=== PATIENT | female | born 2000 | race Caucasian/White ===

== ENCOUNTER 2018-05-13 01:07 | Inpatient (IN) | payer BC ==
[2018-05-13] VITALS (20 sets, daily range): BP systolic 94–140; BP diastolic 55–94
[~2018-05-13] VITALS: Ht 160 cm; Wt 53.1 kg
--- NOTE | ~2018-05-13 | CON ---
[address] [address] CONSULTATION Name: THO MEDINA Room: [address] ADM IN M.R.#: [id number] Admission: 05/13/18 Attend Phys: Blaire Ragsadle Discharge: Date of : [birth year] Report #: [id number] THIS REPORT FOR: //name// CC: [facility]JA physician/PCP Blanca Carmichael Consultation obtained with Dr. Titus for salicylates toxicity. HISTORY OF PRESENT ILLNESS: The patient is a 18-year-old female who was admitted to the ER yesterday after she presented to the ER with intentional ingestion of salicylates with the intention of suicide. The patient reports taking around 40 tablets of Anacin, each of which has 100 mg of aspirin and 32 mg of caffeine. Within half an hour, the patient had 4 episodes of vomiting. She did throw up chunks of tablets and multiple pill fragments. She mentioned by the end of her last vomiting, there were very few tablet chunks in there. She has been admitted to the hospital. She was seen in the intensive care unit. She did have some nausea earlier, but she reports feeling much better now. There is no fever, no chills. No tinnitus. No shortness of breath reported. She is answering all questions appropriately. She denies any abdominal pain. No numbness or tingling has been noted. PAST MEDICAL HISTORY: Significant for depression. HOME MEDICATIONS: control and a recent course of antibiotics. PERSONAL AND SOCIAL HISTORY: No smoking, no alcohol reported. FAMILY HISTORY: Noncontributory to the present illness. REVIEW OF SYSTEMS: As mentioned above. No fevers, no chills, no chest pain, no shortness of breath. No tinnitus. No numbness or tingling. PHYSICAL EXAMINATION: GENERAL: She is awake and alert and answering all questions appropriately. On examination, awake, alert, oriented. VITAL SIGNS: Blood pressure is 108/55, pulse rate is 90, temperature is 37.1. LUNGS: Diminished, but clear. SKIN: Dry, but warm. EXTREMITIES: Show no edema. HEART: Regular S1 and S2. ABDOMEN: Soft, nontender. NEUROLOGIC: Grossly stable. LABORATORY DATA: On admission, white count 12.4, hemoglobin is 14.1. Metabolic panel: Sodium on admission was 141, potassium of 2.8, chloride 104, bicarbonate 21, BUN is 11, creatinine 0.9, AST is 19, ALT is 15. Calcium was 8.3, glucose 122, albumin 4.1. CK level 99. Bicarbonate level 21. Her potassium has been [facility] [address] [place] [address] CONSULTATION Name: THO MEDINA Room: [address] IN M.R.#: [id number] Admission: 05/13/18 Attend Phys: Blaire Ragsdale Discharge: Date of : [birth year] Report #: [id number] corrected now at 4.2. Most recent labs show CO2 level is now 20. A urinalysis was obtained with a pH of 7, salicylate levels on admission 26, then 23.2 and then 28.9. ASSESSMENT: 1. Acute intentional salicylate poisoning. 2. History of depression. PLAN: 1. The patient did have episodes of emesis and threw up chunks of pills. 2. It has been many hours since presentation to the ER, and GI decontamination at this point may not be beneficial. 3. The patient has received fluid boluses already. 4. She is on normal saline at 100 right now. Change IV fluids to D5 normal saline at 100 mL. Give 2 amps of sodium bicarbonate IV 100 mg total dose now. Start D5 with 3 amps of bicarbonate at 100 mL an hour with attention to alkalize the patient and alkalize the urine. 5. Watch symptoms closely including altering of mental status, tachypnea and tinnitus or numbness and tingling peripherally. 6. Salicylate levels every 2 hours. 7. Metabolic panel every 4 hours. 8. Check the urine pH again later in the afternoon. 9. Detailed discussion with the nursing staff and Dr. Titus, instructions explained. 10. There is no acute indication for dialysis at this moment, but this may change with time as it has been less than 24 hours since the ingestion of the tablets. Thank you for the consultation. We will continue to follow and provide necessary support. By: [id number] Shine MD /nt
[~2018-05-13 01:07] MED LIST: MACROBID 100 M100 M2 PO
[2018-05-13] MEDS ORDERED: BIRTH CONTROL PO (01:24)
[2018-05-13 01:30] LABS: ABSOLUTE BASOPHILS 0.1 thou/uL (0.0-0.2); ABSOLUTE EOSINOPHILS 0.1 thou/uL (0.0-0.7); ABSOLUTE LYMPHOCYTES 3.5 thou/uL (0.8-5.3); ABSOLUTE MONOCYTES 0.7 thou/uL (0.0-1.2); ABSOLUTE NEUTROPHILS 8.2 thou/uL (1.6-8.1); BASOPHILS 0.5 %; EOSINOPHILS 0.5 %; HEMATOCRIT 42.4 % (37.0-47.0); HEMOGLOBIN 14.1 gm/dL (12.0-15.0); LYMPHOCYTES 27.8 %; MCHC 33.3 g/dL (28.0-37.0); MONOCYTES 5.3 %; MPV 8.4 fl. (7.2-11.1); NUCLEATED RBCS 0 /100WBC; PLATELET COUNT* 228 thou/uL (150-400); POLYS 65.9 %; RBC 4.72 mil/uL (4.20-5.00); RDW-CV 12.9 % (10.5-14.5); WBC 12.4 thou/uL (4.0-11.0)
[2018-05-13 01:36] LABS: CALCIUM 8.3 mg/dL (8.5-10.1); CREATININE 0.9 mg/dL (0.6-1.3)
[2018-05-13 01:38] LABS: POTASSIUM 2.8 mmol/L (3.5-5.1)
[2018-05-13 01:40] LABS: ALBUMIN 4.1 g/dL (3.4-5.0); TOTAL BILIRUBIN 0.3 mg/dL (<0.1-1.0); TOTAL PROTEIN 7.2 g/dL (6.4-8.2)
[2018-05-13 01:44] LABS: ACETAMINOPHEN < 2 ug/mL (10-30); ALCOHOL < 10 mg/dL (<10)
[2018-05-13 02:02] LABS: URINE BILIRUBIN NEGATIVE (Negative); URINE BLOOD NEGATIVE (Negative); URINE CLARITY CLEAR; URINE COLOR STRAW; URINE GLUCOSE-RANDOM NEGATIVE (Negative); URINE KETONES TRACE (Negative); URINE LEUKOCYTES-REFLEX NEGATIVE (Negative); URINE NITRITE-REFLEX NEGATIVE (Negative); URINE PROTEIN NEGATIVE (Negative); URINE UROBILINOGEN 0.2 E.U./dl (0.2-1.0)
[2018-05-13 02:15] LABS: AMP/METHAMP Negative (Negative); BARBITURATES Negative (Negative); BENZODIAZEPINES Negative (Negative); COCAINE Negative (Negative); METHADONE Negative (Negative); OPIATES Negative (Negative); PCP Negative (Negative); THC Negative (Negative)
[2018-05-13 04:43] LABS: CALCIUM 7.7 mg/dL (8.5-10.1); CREATININE 0.8 mg/dL (0.6-1.3)
[2018-05-13 05:09] LABS: POTASSIUM 3.8 mmol/L (3.5-5.1)
[2018-05-13 06:01] LABS: CALCIUM 7.9 mg/dL (8.5-10.1); CREATININE 0.8 mg/dL (0.6-1.3); POTASSIUM 4.2 mmol/L (3.5-5.1)
[2018-05-13 08:20] LABS: BE -6.5 mmol/L (-2 to +3); HCO3 15.2 mmol/L (22.0-26.0); PCO2 22.4 mmHg (35.0-45.0); pH 7.449 (7.340-7.450)
[2018-05-13 10:06] LABS: CALCIUM 7.9 mg/dL (8.5-10.1); CREATININE 0.8 mg/dL (0.6-1.3)
[2018-05-13 10:26] LABS: POTASSIUM 3.2 mmol/L (3.5-5.1)
[2018-05-13 10:42] LABS: PO2 133.7 mmHg (75.0-100.0)
[2018-05-13 14:16] LABS: CALCIUM 7.7 mg/dL (8.5-10.1); CREATININE 0.8 mg/dL (0.6-1.3); POTASSIUM 3.3 mmol/L (3.5-5.1)
--- NOTE | 2018-05-13 14:24 | EKG ---
[place] [address] ELECTROCARDIOGRAM REPORT Name: THO MEDINAN Room: [address] ADM IN .R.#: [id number] Admission: 05/13/18 Attend Phys: Blaire Ragsdale Discharge: Date of : [birth year] Report #: [id number] THIS REPORT FOR: //name// [facility] ED Test Date: 2018-05-13 Test Time: 01:16:17 Pat Name: THO MEDINA Department: Room: [facility] Gender: F Second Rigger: AP : 2000 Requested By: Talib Diaz Order Number: [id number] MD: Robbie Hall Measurements Intervals [place] Rate: 87 P: 49 MS: 141 QRS: 40 QRSD: 92 T: -79 QT: 331 QTc: 398 Interpretive Statements Sinus rhythm Nonspecific T abnormalities, diffuse leads No previous ECG available for comparison Electronically Signed On 05-13-2018 14:24:39 [employer] by Robbie Hall [email or web address] <ELECTRONICALLY SIGNED> By: Robbie Hall MD, [facility] 05/13/18 1424 011 011 Robbie Hall MD, FACC /EPI
[2018-05-13 18:35] LABS: URINE BILIRUBIN NEGATIVE (Negative); URINE BLOOD TRACE (Negative); URINE CLARITY CLEAR; URINE COLOR YELLOW; URINE GLUCOSE-RANDOM TRACE (Negative); URINE KETONES NEGATIVE (Negative); URINE LEUKOCYTES NEGATIVE (Negative); URINE NITRITE NEGATIVE (Negative); URINE PROTEIN NEGATIVE (Negative); URINE UROBILINOGEN 0.2 E.U./dl (0.2-1.0)
[2018-05-13 18:54] LABS: CALCIUM 8.1 mg/dL (8.5-10.1); CREATININE 0.9 mg/dL (0.6-1.3)
[2018-05-13 22:53] LABS: CALCIUM 7.8 mg/dL (8.5-10.1); CREATININE 0.8 mg/dL (0.6-1.3); POTASSIUM 3.8 mmol/L (3.5-5.1)
[2018-05-14] VITALS (18 sets, daily range): BP systolic 91–144; BP diastolic 55–88
[2018-05-14 04:22] LABS: HEMATOCRIT 36.5 % (37.0-47.0); MCH 30.2 pg (26.0-34.0); MCHC 33.2 g/dL (28.0-37.0); MPV 8.2 fl. (7.2-11.1); RBC 4.01 mil/uL (4.20-5.00); RDW-CV 12.9 % (10.5-14.5); WBC 5.9 thou/uL (4.0-11.0)
[2018-05-14 04:32] LABS: CALCIUM 7.7 mg/dL (8.5-10.1); CREATININE 0.8 mg/dL (0.6-1.3); POTASSIUM 3.9 mmol/L (3.5-5.1); TOTAL BILIRUBIN 0.4 mg/dL (<0.1-1.0); TOTAL PROTEIN 5.5 g/dL (6.4-8.2)
[2018-05-14 04:38] LABS: HEMOGLOBIN 12.1 gm/dL (12.0-15.0)
[2018-05-15] VITALS: BP 120/61
[2018-05-15 03:43] VITALS: BP 116/63
[2018-05-15 04:26] LABS: HEMATOCRIT 40.2 % (37.0-47.0); HEMOGLOBIN 13.3 gm/dL (12.0-15.0); MCH 30.1 pg (26.0-34.0); MCHC 33.1 g/dL (28.0-37.0); MCV 90.8 fL (80.0-100.0); MPV 8.9 fl. (7.2-11.1); RBC 4.42 mil/uL (4.20-5.00); RDW-CV 12.8 % (10.5-14.5); WBC 7.9 thou/uL (4.0-11.0)
[2018-05-15 04:48] LABS: ALBUMIN 3.5 g/dL (3.4-5.0); CALCIUM 8.5 mg/dL (8.5-10.1); CREATININE 0.9 mg/dL (0.6-1.3); MAGNESIUM 1.7 mg/dL (1.8-2.4); TOTAL BILIRUBIN 0.4 mg/dL (<0.1-1.0); TOTAL PROTEIN 6.2 g/dL (6.4-8.2)
[2018-05-15 08:01] VITALS: BP 106/63
[2018-05-15 10:14] VITALS: BP 106/63
== END 2018-05-15 10:51 | disposition home or self-care (01) | DRG 918 ==
LOC: M.ERS 01:07 → M.TBA-ER 01:54 → M.ICU 01:54 → M.3W 05-14 16:25
PROVIDERS: Family Medicine; Internal Medicine; Internal Medicine Nephrology; ADMIT Internal Medicine
DX: T39.012A Poisoning by aspirin, intentional self-harm, initial encounter (principal); E87.2 Acidosis; E87.6 Hypokalemia; F32.9 Major depressive disorder, single episode, unspecified; Y92.89 Other specified places as the place of occurrence of the external cause

== ENCOUNTER 2018-06-11 13:44 | Emergency (ER) | payer BC ==
[~2018-06-11] VITALS: Ht 157.5 cm; Wt 48.1 kg
[~2018-06-11 13:44] MED LIST changes: +BIRTH CONTROL PO
[2018-06-11] MEDS ORDERED: SEROQUEL200 MG PO (13:57)
[2018-06-11 15:11] LABS: URINE BILIRUBIN NEGATIVE (Negative); URINE BLOOD 2+ (Negative); URINE CLARITY CLEAR; URINE COLOR YELLOW; URINE GLUCOSE-RANDOM NEGATIVE (Negative); URINE KETONES NEGATIVE (Negative); URINE LEUKOCYTES-REFLEX NEGATIVE (Negative); URINE NITRITE-REFLEX NEGATIVE (Negative); URINE PROTEIN NEGATIVE (Negative); URINE SPECIFIC GRAVITY 1.015 (1.005-1.030); URINE UROBILINOGEN 0.2 E.U./dl (0.2-1.0)
[2018-06-11 15:41] LABS: SQUAMOUS >10 Many /LPF (0-3)
[2018-06-11 15:43] LABS: URINE WBC-REFLEX 0-5 Rare /HPF (0-5)
[2018-06-11 15:44] LABS: CASTS None Seen /LPF (None Seen); CRYSTALS None Seen /LPF (None Seen); MUCUS None Seen strn/LPF (None Seen); URINE RBC 0-2 Rare /HPF (0-2)
[2018-06-11] MEDS ORDERED: ROBAXIN 750 MG750 M1 PO (16:08)
[2018-06-11] MEDS ORDERED: IBUPROFEN 600600 M1 PO (16:08)
[2018-06-11 16:27] VITALS: BP 127/90
== END 2018-06-11 16:28 | disposition home or self-care (01) ==
LOC: M.ERS 13:44
PROVIDERS: Nurse Practitioner Family
DX: S16.1XXA Strain of muscle, fascia and tendon at neck level, initial encounter (principal); M25.551 Pain in right hip; F32.9 Major depressive disorder, single episode, unspecified; F41.9 Anxiety disorder, unspecified; G47.00 Insomnia, unspecified; M41.9 Scoliosis, unspecified; V49.40XA Driver injured in collision with unspecified motor vehicles in traffic accident, initial encounter; Y93.89 Activity, other specified; Y92.410 Unspecified street and highway as the place of occurrence of the external cause; Y99.8 Other external cause status

== ENCOUNTER 2018-11-02 17:17 | Emergency (ER) | payer OTHER ==
[~2018-11-02] VITALS: Ht 160 cm; Wt 49.9 kg
[~2018-11-02 17:17] MED LIST changes: +IBUPROFEN 600600 M1 PO; +ROBAXIN 750 MG750 M1 PO; +SEROQUEL200 MG PO
[2018-11-02] MEDS ORDERED: SERTRALINE HCL50 MG PO (17:33)
[2018-11-02] MEDS ORDERED: MEDROLDOSEPACK PO (18:39)
[2018-11-02 18:46] VITALS: BP 112/76
== END 2018-11-02 18:48 | disposition home or self-care (01) ==
LOC: M.ERS 17:17
DX: S16.1XXA Strain of muscle, fascia and tendon at neck level, initial encounter (principal); M54.6 Pain in thoracic spine; F32.9 Major depressive disorder, single episode, unspecified; F41.9 Anxiety disorder, unspecified; M41.9 Scoliosis, unspecified; G47.00 Insomnia, unspecified; V49.40XA Driver injured in collision with unspecified motor vehicles in traffic accident, initial encounter; Y93.89 Activity, other specified; Y92.89 Other specified places as the place of occurrence of the external cause; Y99.8 Other external cause status

== ENCOUNTER 2020-04-20 19:47 | Emergency (ER) | payer OTHER, MEDICAID ==
[~2020-04-20] VITALS: Ht 157.5 cm; Wt 47.6 kg
[~2020-04-20 19:47] MED LIST changes: +MEDROLDOSEPACK PO; +SERTRALINE HCL50 MG PO
[2020-04-20] MEDS ORDERED: NORCO 5-325 TA1 EAC2 PO (21:17)
[2020-04-20] MEDS ORDERED: FLEXERIL PO (21:17)
[2020-04-20 21:33] VITALS: BP 123/77
== END 2020-04-20 21:33 | disposition home or self-care (01) ==
LOC: M.ERS 19:47
DX: S16.1XXA Strain of muscle, fascia and tendon at neck level, initial encounter (principal); S29.012A Strain of muscle and tendon of back wall of thorax, initial encounter; M41.9 Scoliosis, unspecified; V49.49XA Driver injured in collision with other motor vehicles in traffic accident, initial encounter; Y93.89 Activity, other specified; Y92.89 Other specified places as the place of occurrence of the external cause; Y99.8 Other external cause status

== ENCOUNTER 2020-06-28 09:12 | Emergency (ER) | payer OTHER, MEDICAID ==
[~2020-06-28] VITALS: Ht 160 cm; Wt 45.4 kg
[~2020-06-28 09:12] MED LIST changes: +FLEXERIL PO; +NORCO 5-325 TA1 EAC2 PO
[2020-06-28] MEDS ORDERED: SUPER THERAVIT1 EACH PO (09:22)
[2020-06-28 10:18] LABS: HEMATOCRIT 40.1 % (37.0-47.0); HEMOGLOBIN 13.7 gm/dL (12.0-15.0); MCH 30.7 pg (26.0-34.0); MCHC 34.2 g/dL (28.0-37.0); MCV 89.8 fL (80.0-100.0); MPV 7.6 fl. (7.2-11.1); RBC 4.47 mil/uL (4.20-5.00); RDW-CV 12.9 % (10.5-14.5); WBC 7.9 thou/uL (4.0-11.0)
[2020-06-28 10:25] LABS: CALCIUM 8.7 mg/dL (8.5-10.1); POTASSIUM 3.5 mmol/L (3.5-5.1)
[2020-06-28] MEDS ORDERED: KEFLEX500 M1 PO (11:32)
[2020-06-28] MEDS ORDERED: BACTRIM DS TAB1 EAC1 PO (11:32)
[2020-06-28 11:40] VITALS: BP 134/88
== END 2020-06-28 11:41 | disposition home or self-care (01) ==
LOC: M.ERS 09:12
PROVIDERS: Emergency Medicine Emergency Medical Services
DX: L03.213 Periorbital cellulitis (principal); M41.9 Scoliosis, unspecified

== ENCOUNTER 2021-02-16 12:34 | Emergency (ER) | payer OTHER, MEDICAID ==
[~2021-02-16] VITALS: Ht 157.5 cm; Wt 45.4 kg
[~2021-02-16 12:34] MED LIST changes: +BACTRIM DS TAB1 EAC1 PO; +KEFLEX500 M1 PO; +SUPER THERAVIT1 EACH PO
[2021-02-16] MEDS ORDERED: CYCLOBENZAPRINE5 MG PO (13:43)
[2021-02-16 13:51] VITALS: BP 132/86
== END 2021-02-16 13:52 | disposition home or self-care (01) ==
LOC: M.ERS 12:34
DX: S09.90XA Unspecified injury of head, initial encounter (principal); S50.812A Abrasion of left forearm, initial encounter; F32.9 Major depressive disorder, single episode, unspecified; F41.9 Anxiety disorder, unspecified; V49.49XA Driver injured in collision with other motor vehicles in traffic accident, initial encounter; Y93.89 Activity, other specified; Y92.89 Other specified places as the place of occurrence of the external cause; Y99.8 Other external cause status